=== PATIENT | male | born 1940 | race Two or more races ===

== ENCOUNTER 2018-01-01 11:19 | Inpatient (IN) | payer OTHER ==
[~2018-01-01] VITALS: Ht 167.6 cm; Wt 74.8 kg
[2018-01-01] MEDS ORDERED: PRED MILD5 ML (11:59)
[2018-01-01] MEDS ORDERED: MESTINON60 M1 PO (11:59)
[2018-01-01] MEDS ORDERED: MICROZIDE12.5 MG PO (12:00)
[2018-01-01] MEDS ORDERED: MAGNESIUM250 MG PO (12:00)
[2018-01-01] MEDS ORDERED: MYRBETRIQ25 MG PO (12:00)
[2018-01-06] MEDS ORDERED: INVANZ1 GM IV (07:53)
== END 2018-01-06 13:42 | disposition home or self-care (01) | DRG 727 ==
LOC: ER 11:19 → MEDJ 19:56
PROC: BW4GZZZ Ultrasonography of Pelvic Region (ICD-10-PCS; principal; 2018-01-01)
PROC: BW21Y0Z Computerized Tomography (CT Scan) of Abdomen and Pelvis using Other Contrast, Unenhanced and Enhanced (ICD-10-PCS; 2018-01-01)
PROC: B246ZZZ Ultrasonography of Right and Left Heart (ICD-10-PCS; 2018-01-01)
PROC: 4A12X4Z Monitoring of Cardiac Electrical Activity, External Approach (ICD-10-PCS; 2018-01-01)
DX: N41.0 Acute prostatitis (principal); A41.9 Sepsis, unspecified organism; N39.0 Urinary tract infection, site not specified; G70.00 Myasthenia gravis without (acute) exacerbation; I10 Essential (primary) hypertension

== ENCOUNTER 2022-05-20 08:30 | Outpatient (CLI) | payer OTHER ==
[~2022-05-20] VITALS: Ht 167.6 cm; Wt 65.8 kg
[~2022-05-20 08:30] MED LIST: INVANZ1 GM IV; MAGNESIUM250 MG PO; MESTINON60 M1 PO; MICROZIDE12.5 MG PO; MYRBETRIQ25 MG PO; PRED MILD5 ML
== END 2022-05-20 08:31 | disposition home or self-care (01) ==
LOC: LAB 08:30
PROVIDERS: ATTEND Orthopaedic Surgery
DX: D64.9 Anemia, unspecified (principal); D68.8 Other specified coagulation defects; N39.0 Urinary tract infection, site not specified; Z22.322 Carrier or suspected carrier of Methicillin resistant Staphylococcus aureus; E11.9 Type 2 diabetes mellitus without complications; E03.9 Hypothyroidism, unspecified; E55.9 Vitamin D deficiency, unspecified; E88.9 Metabolic disorder, unspecified; I10 Essential (primary) hypertension; Z76.89 Persons encountering health services in other specified circumstances; M85.9 Disorder of bone density and structure, unspecified; E56.1 Deficiency of vitamin K; E21.3 Hyperparathyroidism, unspecified; M81.8 Other osteoporosis without current pathological fracture